=== PATIENT | male | born 1975 | race Caucasian/White ===

== ENCOUNTER → 2019-11-16 15:33 | Outpatient (CLI) | payer OTHER, SELFPAY ==
[2019-11-17 08:42] LABS: COVID19 Sendout Not Detected (Not Detect)
== END ==
PROVIDERS: Visit Provider Nurse Practitioner
DX: Z11.59 Encounter for screening for other viral diseases (principal)
CPT/HCPCS: 87635

== ENCOUNTER 2019-11-18 08:44 | Day surgery (SDC) | payer OTHER, SELFPAY ==
[2019-11-18] VITALS (8 sets, daily range): BP systolic 116–156; BP diastolic 69–91; PULSE 62–74; RESP 10–18; TEMP 36.2–36.6; O2SAT 94–98; BMI 38.0
--- NOTE | 2019-11-18 | PATH_ITS ---
[facility] Accession Number: [id number] . 01 Material submitted: . esophagus - ESOPHAGEAL BIOPSY . 01 Clinical history: . EGD W/POSS BX . 02 Diagnosis: Esophagus, Biopsy: Squamous epithelium with increased intraepithelial eosinophils (focally up to 45 per high powered field). See comment. Negative for dysplasia and malignancy. V 11/20/2019 1309 Local . 02 Comment: In the proper clinical setting, the histopathologic appearance would support a clinical impression of eosinophilic esophagitis. The differential diagnosis includes drug reaction, gastroesophageal reflux, and food allergies. . . 02 Electronically signed: . Cesar Wells MD, PhD, Pathologist NPI- [id number] . 01 Gross description: . ESOPHAGEAL BIOPSY: Received in formalin are minute fragment(s) of mckenna, soft tissue measuring 0.3 x 0.3 x 0.1 cm in aggregate submitted entirely in 1 cassette(s) /QBJ 11/19/2019 0106 Local . 02 Microscopic: . A PAS stain is performed to evaluate for fungal organisms, and is negative. A control stain shows appropriate reactivity. . 02 Pathologist provided ICD-10: R13.14, K20.0 . 02 CPT . 845419, [id number] Performed at: [address] [facility] [address], [place], [place] [id number] MD Patrick Talley MD Phone: [phone] Performed at: [address] [facility] [address] [place], [place] [id number] MD Zhanna Mehta MD Phone: [phone]
[2019-11-18] MEDS: SODIUM CHLORIDE 0.9% 1,000 ML 21 ML IV (09:30)
[2019-11-18] MEDS: fentaNYL 250 MCG/5 ML INJ IV (10:17)
[2019-11-18] MEDS: MIDAZOLAM 5 MG/5 ML VIAL IV (10:18)
--- NOTE | 2019-11-18 10:36 | PM.HP.1 ---
History of Present Illness History of Present Illness Date Patient Seen: 11/18/19 Time Patient Seen: 10:36 Chief complaint: [id number] EGD W/POSS BX Narrative: Dysphagia with a history of known eosinophilic esophagitis and Schatzki's ring. Patient History Family & Social History Social History: household members none Tobacco & Substance use: Smoking Status Never smoker alcohol intake never Substance Use Type does not use Meds Home Medications and Allergies Home Medications Medication Instructions Recorded Confirmed Type omeprazole 20 mg PO DAILY 11/18/19 11/18/19 History zolmitriptan 0 mg PO .COMPLEX PRN 11/18/19 11/18/19 History Allergies Allergy/AdvReac Type Severity Reaction Status Date / Time erythromycin base Allergy Hives Verified 11/18/19 09:10 Exam Vital Signs (past 8 hours): - 11/18/19 09:12 Temperature 97.9 F Pulse Rate 67 Respiratory Rate 18 Blood Pressure 134/88 Pulse Oximetry 96 Oxygen Delivery Method Room Air Narrative Exam Narrative: oropharynx free of lesions Chest clear to auscultation percussion Cardiac exam reveals no S3 or murmur Assessment & Plan Assessment & Plan narrative: dysphagia with known history of eosinophilic esophagitis and Schatzki's ring. Need to sort out which 1 is causing most problem and perform dilation if necessary. Risks, benefits, alternatives have been explained.
--- NOTE | 2019-11-18 10:38 | PM.OP.ENDO ---
Operative Date/Time/Diagnoses Date of procedure: 11/18/19 Time of procedure: 10:39 Pre-op diagnosis: See indication and findings Procedure & Clinicians Study performed: EGD and dilation Same procedure as scheduled: Yes Indications: dysphagia Procedure Notes Procedure in detail: after informed consent was obtained the patient was placed in left lateral decubitus position. The video upper scope was placed into the oropharynx and with the patient's help solve into the esophagus. The esophagus stomach and duodenum were carefully examined. On withdrawal, retroflexed view of the GE junction was performed. The scope was removed. The patient tolerated procedure well. Blood loss none Complications none Sedation Total sedation time 15 minutes Versed 8 mg fentanyl 150 mg IV titration Findings 1. significant esophageal rings from the mid upper 3rd of the esophagus to approximately 4-5 cm above the GE junction. There were still mild hints of rings in the last 4-5 cm. Biopsies were taken to rule out eosinophilic esophagitis 2. fairly wide-open Schatzki's ring. Was elected to attempt to dilate. A balloon dilator 15-16-17 was used at a level of 17 mm and there was still a little room to move with the in the Schatzki's ring. Therefore I feel that the ring itself is not causing any of this dysphagia. 3. 4 cm hiatal hernia from 42-46 cm 4. otherwise normal stomach 5. Normal duodenal bulb and sweep Patient will follow up with Dr. Donahue in the office to let her know how he is doing with the swallowed Flonase inhaler that I am about to give him. Biopsies can also be reviewed at that time.
[2019-11-18] MEDS: ACETAMINOPHEN 325 MG TABLET 650 MG PO (11:41)
== END 2019-11-18 11:49 | disposition home or self-care (01) ==
PROVIDERS: Referring Provider Internal Medicine Gastroenterology; Visit Provider Internal Medicine Gastroenterology
PROC: 0DJ08ZZ Inspection of Upper Intestinal Tract, Via Natural or Artificial Opening Endoscopic (ICD-10-PCS; CPT 43235; principal; 2019-11-18 10:00)
DX: K20.0 Eosinophilic esophagitis (principal); K22.2 Esophageal obstruction; K44.9 Diaphragmatic hernia without obstruction or gangrene
CPT/HCPCS: 43249; 43239; J2250; J3010